=== PATIENT | female | born 1980 | race African-American/Black ===

== ENCOUNTER 2022-02-16 11:24 | Inpatient (IN) | payer OTHER, MEDICAID ==
[~2022-02-16] VITALS: Ht 172.7 cm; Wt 116.3 kg
[2022-02-16] MEDS ORDERED: DILTIAZEM HCL 5MG/ML 5ML VIAL IV ONE ×2 (12:00→13:15)
[2022-02-16 12:11] LABS: EOSINOPHILS % 0.8 % (0.0-5.0); HEMATOCRIT. 34.3 % (36.0-48.0); HEMOGLOBIN. 11.1 g/dL (12.0-16.0); LYMPHOCYTES % 27.4 % (20.0-50.0); MEAN CORPUSCULAR HEMOGLOBIN 27.3 pg (28.0-32.0); MEAN CORPUSCULAR VOLUME 83.9 fL (81.0-99.0); MEAN PLATELET VOLUME 9.6 fl (7.4-10.4); NEUTROPHILS % 61.8 % (40.0-76.0); PLATELET 342 x1000/uL (130-400); RED BLOOD CELL COUNT 4.09 mill/uL (4.2-5.4); RED CELL DISTRIBUTION WIDTH 16.1 % (11.6-14.6)
[2022-02-16 12:15] LABS: CHLORIDE 113 mEq/L (98-107)
[2022-02-16] MEDS ORDERED: SODIUM CHLORIDE 0.9% 1,000 ML IV ONE (12:15)
[2022-02-16 12:17] LABS: D-DIMER 2.34 mg/L FEU (<0.50); PARTIAL THROMBOPLASTIN TIME 28.2 sec (23.4-31.0)
[2022-02-16 12:26] LABS: HCG SCREEN NEGATIVE
[2022-02-16] MEDS ORDERED: AZITHROMYCIN 500MG/250ML 250 ML IV ONE (14:00)
[2022-02-16] MEDS ORDERED: SODIUM CHLORIDE 0.9% 1000ML BAG (SEPSIS BOLUS) IV ONE (14:00)
[2022-02-16] MEDS ORDERED: CEFTRIAXONE 1 G PREMIX 50 ML IV ONE (14:00)
[2022-02-16] MEDS ORDERED: IOHEXOL-350 100 ML BOTTLE ONE (14:53)
[2022-02-16] MEDS ORDERED: LEVOFLOXACIN 500MG PREMIX 100 ML IV SCH (20:00)
[2022-02-16 21:15] VITALS: BP 121/72
[2022-02-16 23:14] VITALS: BP 121/72
[2022-02-17] VITALS: BP 113/50
[2022-02-17] MEDS: ENOXAPARIN 30MG/0.3ML SYR SUBCUT SCH ×2 (01:54→09:45)
[2022-02-17 04:00] VITALS: BP 108/71
[2022-02-17 08:00] VITALS: BP 100/50
[2022-02-17 11:02] LABS: BASOPHILS % 0.7 % (0.0-2.0); EOSINOPHILS % 0.7 % (0.0-5.0); HEMATOCRIT. 34.6 % (36.0-48.0); HEMOGLOBIN. 11.3 g/dL (12.0-16.0); LYMPHOCYTES % 15.6 % (20.0-50.0); MEAN CORPUSCULAR HEMOGLOBIN 27.6 pg (28.0-32.0); MEAN CORPUSCULAR VOLUME 84.4 fL (81.0-99.0); MEAN PLATELET VOLUME 10.1 fl (7.4-10.4); MONOCYTES % 6.6 % (2.0-8.0); NEUTROPHILS % 76.4 % (40.0-76.0); PLATELET 302 x1000/uL (130-400); RED CELL DISTRIBUTION WIDTH 15.9 % (11.6-14.6)
[2022-02-17 11:16] LABS: CHLORIDE 111 mEq/L (98-107)
[2022-02-17 12:00] VITALS: BP 115/71
[2022-02-17] MEDS ORDERED: DILTIAZEM HCL 30MG TABLET PO SCH (14:00)
[2022-02-17 16:00] VITALS: BP 112/65
[2022-02-17] MEDS ORDERED: DILT30TA38 PO (16:45)
[2022-02-17 17:29] VITALS: BP 112/65
[2022-02-18] MEDS ORDERED: LEVOFLOXACIN 500MG PREMIX 100 ML IV SCH (01:00)
[2022-02-21] MEDS ORDERED: DILT60TA35 PO (15:22)
== END 2022-02-17 18:00 | disposition home or self-care (01) | DRG 308 ==
LOC: ER 13:02 → 7WST 13:59 → EDBEDREQ 14:03 → ENRESERV 18:14 → ER 22:49 → 7WST 02-17 00:08 → UNDOADMIN 02-17 00:08 → UNDODISIN 02-17 18:00
PROVIDERS: ADMIT Family Medicine; ATTEND Family Medicine
DX: I47.1 Supraventricular tachycardia (principal); J18.9 Pneumonia, unspecified organism; E44.1 Mild protein-calorie malnutrition; Z20.822 Contact with and (suspected) exposure to COVID-19; E66.9 Obesity, unspecified; D64.9 Anemia, unspecified; Z68.39 Body mass index [BMI] 39.0-39.9, adult
CPT/HCPCS: 36415; 71045; 71275; 80053; 83605; 83880; 84443; 84484; 84703; 85025; 85379; 87426; 93005; 93306; 99291; J0456; J0696; J1650; J1956; J3490; J7030; Q9967

== ENCOUNTER 2024-10-28 09:10 | Inpatient (IN) | payer MEDICAID, OTHER ==
[~2024-10-28] VITALS: Ht 172.7 cm; Wt 117.9 kg
[~2024-10-28 09:10] MED LIST: DILT30TA37 PO; DILT60TA35 PO
[2024-10-28] MEDS ORDERED: DILTIAZEM HCL 5MG/ML 5ML VIAL IV NR (09:30)
[2024-10-28] MEDS: SODIUM CHLORIDE 0.9% 1,000 ML IV ONE (09:59)
[2024-10-28 10:04] LABS: BASOPHILS % 0.5 % (0.0-2.0); EOSINOPHILS % 1.9 % (0.0-5.0); HEMATOCRIT. 25.7 % (36.0-48.0); HEMOGLOBIN. 7.6 g/dL (12.0-16.0); LYMPHOCYTES % 17.1 % (20.0-50.0); MEAN CORPUSCULAR HEMOGLOBIN 19.7 pg (28.0-32.0); MEAN CORPUSCULAR HGB CONC 29.6 g/dL (31.0-37.0); MEAN CORPUSCULAR VOLUME 66.7 fL (81.0-99.0); MEAN PLATELET VOLUME 8.4 fl (7.4-10.4); MONOCYTES % 8.1 % (2.0-8.0); NEUTROPHILS % 72.4 % (40.0-76.0); PLATELET 446 x1000/uL (130-400); RED BLOOD CELL COUNT 3.86 mill/uL (4.2-5.4); RED CELL DISTRIBUTION WIDTH 18.9 % (11.6-14.6); WHITE BLOOD COUNT 6.7 x1000/uL (4.5-11.0)
[2024-10-28 10:22] LABS: CARBON DIOXIDE 24 mEq/L (21-32); CHLORIDE 106 mEq/L (98-107); POTASSIUM 3.8 mEq/L (3.5-5.1); SODIUM 137 mEq/L (136-145)
[2024-10-28 10:23] LABS: CALCIUM 9.1 mg/dL (8.7-10.4)
[2024-10-28 10:24] LABS: ADD RBC MORPHOLOGY YES; DIFFERENTIAL COMMENT 1
[2024-10-28 10:28] LABS: CREATININE 0.9 mg/dL (0.6-1.0); GLUCOSE 100 mg/dL (70-105); TROPONIN I HIGH SENSITIVITY 11 ng/L (3.0-34); UREA NITROGEN BLOOD 12 mg/dL (9-23)
[2024-10-28 10:47] LABS: HYPOCHROMASIA 3+; PLATELET ESTIMATE SLIGHTLY INCREASED
[2024-10-28 10:48] LABS: ANISOCYTOSIS 3+
[2024-10-28 10:49] LABS: MICROCYTOSIS 3+
[2024-10-28] MEDS ORDERED: ONDANSETRON HCL 4MG/2ML INJ IV PRN (12:45)
[2024-10-28] MEDS ORDERED: MAGNESIUM/ALUMINUM HYDROXIDE/SIMETHICONE 30ML UDC PO PRN (12:45)
[2024-10-28] MEDS ORDERED: IPRATROPIUM/ALBUTEROL 0.5-3(2.5)MG/3ML NEB HHN PRN (12:45)
[2024-10-28 15:55] VITALS: BP 131/68; PULSE 99; RESP 14; TEMP 36.8628
[2024-10-28 16:00] VITALS: BP 131/68; PULSE 99; RESP 14; TEMP 36.83628; O2SAT 99
[2024-10-28 17:46] LABS: IRON 31 ug/dL (50-170)
[2024-10-28 17:47] LABS: CLARITY URINE TURBID (CLEAR); COLOR URINE YELLOW (YELLOW); GLUCOSE URINE NEGATIVE (NEGATIVE); KETONES URINE NEGATIVE (NEGATIVE); LEUKOCYTE ESTERASE URINE 3+ (NEGATIVE); NITRITE URINE NEGATIVE (NEGATIVE); OCCULT BLOOD URINE 3+ (NEGATIVE); PH URINE 6.5 (4.5-8.0); PROTEIN URINE 2+ (NEGATIVE); SPECIFIC GRAVITY URINE 1.012 (1.005-1.030); UROBILINOGEN URINE 0.2 E.U./dL (0.2-1.0)
[2024-10-28 17:49] LABS: TOTAL IRON BINDING CAPACITY 410 ug/dl (250-425)
[2024-10-28 17:59] LABS: FOLIC ACID (FOLATE) SERUM 11.93 ng/mL (>5.38); VITAMIN B12 SERUM 429 pg/mL (211-911)
[2024-10-28 18:03] LABS: FERRITIN 4 ng/mL (10-291)
[2024-10-28 18:04] LABS: *AMPHETAMINES SCREEN URINE NEGATIVE (NEGATIVE); *BARBITURATES SCREEN URINE NEGATIVE (NEGATIVE); *BENZODIAZEPINES SCREEN URINE NEGATIVE (NEGATIVE); *COCAINE SCREEN URINE NEGATIVE (NEGATIVE); CANNABINOID URINE SCREEN NEGATIVE (NEGATIVE); ECSTASY MDMA SCREEN URINE NEGATIVE (NEGATIVE); METHADONE URINE SCREEN NEGATIVE (NEGATIVE); OPIATES URINE SCREEN NEGATIVE (NEGATIVE); PHENCYCLIDINE URINE SCREEN NEGATIVE (NEGATIVE)
[2024-10-28 18:05] LABS: BACTERIA URINE 1+; RBC URINE 15-25 /hpf (0-2); SQUAMOUS EPITHELIAL CELL URINE FEW /lpf (RARE/1+); WBC URINE TNTC /hpf (0-2)
[2024-10-28 20:00] VITALS: BP 121/67; PULSE 98; RESP 18; TEMP 37.2252; O2SAT 99
[2024-10-28] MEDS ORDERED: DILTIAZEM HCL 60MG TABLET PO SCH (22:00)
[2024-10-29] VITALS (11 sets, daily range): BP systolic 104–133; BP diastolic 44–82; PULSE 84–107; RESP 16–19; TEMP 36.44736–37.28076; O2SAT 98–99
[2024-10-29] MEDS: ACETAMINOPHEN 325MG TABLET PO PRN (11:49)
[2024-10-29 12:51] LABS: BASOPHILS % 0.7 % (0.0-2.0); EOSINOPHILS % 1.6 % (0.0-5.0); HEMATOCRIT. 23.2 % (36.0-48.0); LYMPHOCYTES % 28.5 % (20.0-50.0); MEAN CORPUSCULAR HEMOGLOBIN 19.7 pg (28.0-32.0); MEAN CORPUSCULAR HGB CONC 29.7 g/dL (31.0-37.0); MEAN CORPUSCULAR VOLUME 66.4 fL (81.0-99.0); MEAN PLATELET VOLUME 8.4 fl (7.4-10.4); MONOCYTES % 11.1 % (2.0-8.0); NEUTROPHILS % 58.1 % (40.0-76.0); PLATELET 374 x1000/uL (130-400); RED BLOOD CELL COUNT 3.49 mill/uL (4.2-5.4); RED CELL DISTRIBUTION WIDTH 18.9 % (11.6-14.6); WHITE BLOOD COUNT 5.6 x1000/uL (4.5-11.0)
[2024-10-29 13:13] LABS: DIFFERENTIAL COMMENT 1
[2024-10-29 13:16] LABS: HEMOGLOBIN. 6.9 g/dL (12.0-16.0)
[2024-10-29 14:07] LABS: HCG SCREEN NEGATIVE
[2024-10-29 14:10] LABS: THYROID STIMULATING HORMONE 1.32 uIU/mL (0.55-4.78)
[2024-10-29] MEDS: ENOXAPARIN 40MG/0.4ML SYR SUBCUT SCH (20:01)
[2024-10-29 23:59] LABS: HEMATOCRIT 23.9 % (36.0-48.0); HEMOGLOBIN 7.5 g/dL (12.0-16.0)
[2024-10-30] LABS: PROTHROMBIN TIME 10.8 sec (9.6-11.0)
[2024-10-30 04:00] VITALS: BP 104/59; PULSE 86; RESP 20; TEMP 36.78072; O2SAT 100
[2024-10-30 08:00] VITALS: BP 123/54; PULSE 89; RESP 18; TEMP 35.89176; O2SAT 97
[2024-10-30 10:03] VITALS: BP 124/72; PULSE 83; TEMP 97.9; O2SAT 98
[2024-10-30 12:00] VITALS: BP 124/72; PULSE 83; RESP 18; TEMP 36.16956; O2SAT 98
== END 2024-10-30 15:38 | disposition home or self-care (01) | DRG 201 ==
LOC: ER 09:10 → 8WST 11:49 → EDBEDREQ 11:53 → EDBEDREQTM 11:53
PROVIDERS: ADMIT Internal Medicine; ATTEND Internal Medicine
PROC: 30233N1 Transfusion of Nonautologous Red Blood Cells into Peripheral Vein, Percutaneous Approach (ICD-10-PCS; principal; 2024-10-29)
DX: I47.19 Other supraventricular tachycardia (principal); D64.9 Anemia, unspecified; D75.839 Thrombocytosis, unspecified; E66.9 Obesity, unspecified; Z68.39 Body mass index [BMI] 39.0-39.9, adult
CPT/HCPCS: 36415; 71045; 80048; 80061; 80305; 81003; 82607; 82728; 82746; 83540; 83550; 84443; 84484; 84703; 85014; 85018; 85025; 85384; 86850; 86900; 86920; 93005; 93308; 99291; A4606; P9016